=== PATIENT | male | born 1980 | race Hispanic/Latino ===

== ENCOUNTER 2023-02-12 16:03 | Emergency (ER) | payer OTHER | END 2023-02-12 17:03 | disposition home or self-care (01) | LOC: BURERS 16:03 | DX: Z04.1 Encounter for examination and observation following transport accident (principal); K21.9 Gastro-esophageal reflux disease without esophagitis; D50.9 Iron deficiency anemia, unspecified; G40.909 Epilepsy, unspecified, not intractable, without status epilepticus | CPT/HCPCS: 99282 ==